=== PATIENT | male | born 1975 | race Caucasian/White ===

== ENCOUNTER → 2016-10-31 | Outpatient (CLI) | payer OTHER | END | disposition home or self-care (01) | LOC: C.LAB 09:29 | PROVIDERS: ATTEND Family Medicine | DX: Z30.8 Encounter for other contraceptive management (principal); Z98.52 Vasectomy status ==

== ENCOUNTER → 2016-12-12 | Outpatient (CLI) | payer OTHER | END | disposition home or self-care (01) | LOC: C.LABSPEC 17:00 | PROVIDERS: ATTEND Podiatrist Foot & Ankle Surgery | DX: B35.1 Tinea unguium (principal); R23.4 Changes in skin texture; L85.9 Epidermal thickening, unspecified ==

== ENCOUNTER → 2017-12-29 | Outpatient (CLI) | payer OTHER | END | disposition home or self-care (01) | LOC: C.LAB 12:08 | PROVIDERS: ATTEND Specialist | DX: Z30.2 Encounter for sterilization (principal) ==